=== PATIENT | female | born 1990 | race Asian ===

== ENCOUNTER 2017-08-28 04:28 | Emergency (ER) | payer MEDICAID ==
[~2017-08-28] VITALS: Ht 157.5 cm; Wt 59.0 kg
[2017-08-28 04:30] VITALS: BP 120/84
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
--- NOTE | 2017-08-28 04:45 | NUR ---
Dr No at bedside to eval.
--- NOTE | 2017-08-28 04:45 | NUR ---
DR SOLORZANO AT BEDSIDE FOR EVAL.
== END 2017-08-28 05:01 | disposition home or self-care (01) ==
LOC: ER 04:33
DX: S01.01XA Laceration without foreign body of scalp, initial encounter (principal); W22.8XXA Striking against or struck by other objects, initial encounter; Y92.89 Other specified places as the place of occurrence of the external cause; Y93.89 Activity, other specified; Y99.8 Other external cause status
CPT/HCPCS: 12002; 99283; A4606; A6402; J3490; Z7610

== ENCOUNTER 2017-08-31 07:54 | Emergency (ER) | payer MEDICAID ==
[~2017-08-31] VITALS: Ht 157.5 cm; Wt 59.0 kg
[2017-08-31 07:58] VITALS: BP 110/64
== END 2017-08-31 08:10 | disposition home or self-care (01) ==
LOC: ER 07:57
DX: S01.81XD Laceration without foreign body of other part of head, subsequent encounter (principal)
CPT/HCPCS: 99281; A4606; Z7610; Z7502

== ENCOUNTER 2017-09-06 08:06 | Emergency (ER) | payer MEDICAID ==
[~2017-09-06] VITALS: Ht 157.5 cm; Wt 59.0 kg
[2017-09-06 08:28] VITALS: BP 120/49
== END 2017-09-06 09:24 | disposition home or self-care (01) ==
LOC: ER 08:14
DX: S01.01XD Laceration without foreign body of scalp, subsequent encounter (principal)
CPT/HCPCS: A4606; Z7610